=== PATIENT | male | born 1935 | race African-American/Black ===

== ENCOUNTER 2016-11-11 12:50 | Inpatient (IN) | payer OTHER ==
[2016-11-11] MEDS ORDERED: LORAZEPAM CARPU-JECT 2 MG/ML DISP.SYRIN IVPUSH ONE ×2 (13:19→16:46)
[2016-11-11] MEDS ORDERED: PANTOPRAZOLE SODIUM 40 MG in SODIUM CHLORIDE 100 ML IVPB ONE (13:37)
--- NOTE | 2016-11-11 13:43 | PDOC ---
History of Present Illness - General Stated Complaint: CHEST PAIN Time Seen by Provider: 11/11/16 12:54 History Source: Patient - History of Present Illness Initial Comments: 11/11/16 13:35 81-year-old male sent over from [facility] intake department secondary to patient 's complaint of chest pain which he describes as a midsternal tingling for the past hour without palpitations, pressure, diaphoresis or nausea. Patient states went to [facility] detox secondary to alcohol abuse which he states drinks 1 pint of vodka daily. Patient denies cough, shortness of breath, recent illness or recent infection. 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 Presenting Symptoms: Chest Pain Timing/Duration: reports: resolved prior to arrival (resolving since arrival) Severity/Quality: reports: moderate, other (tingling) Location: reports: substernal Chest Pain Radiation: reports: no radiation Activities at Onset: reports: none Prior Chest Pain/Cardiac Workup: reports: Other Nitro Today/Relief: Yes: no nitro taken today, 0.4 mg x 1 (given by EMS) Aspirin Received prior to arrival (Core Measure): Yes: 81 mg x 2 Associated Symptoms: Yes: Chest Pain/pressure Past History - Past Medical History Allergies/Adverse Reactions: Allergies Allergy/AdvReac Type Severity Reaction Status Date / Time No Known Allergies Allergy Verified 11/11/16 10:18 Home Medications: Ambulatory Orders Elviteg/Kathryn/Emtric/Tenofo Ala [Genvoya Tablet] 1 each PO DAILY 11/11/16 Finasteride [Proscar] 5 mg PO DAILY 11/11/16 Fluticasone Prop 0.05% Nasal [Flonase -] 1 - 2 spray NS BID 11/11/16 Indapamide 1.25 mg PO DAILY 11/11/16 Levetiracetam [Keppra -] 500 mg PO BID 11/11/16 Metoprolol Tartrate [Lopressor -] 25 mg PO BID 11/11/16 Tamsulosin HCl [Flomax] 0.4 mg PO DAILY 11/11/16 Asthma: No Cardiac Disorders: Yes (CABG in 2005 mitral valve replacement in 2006) COPD: No Diabetes: No GI Disorders: No Disorders: No HTN: Yes (on meds.) Kidney Stones: No Suicide Attempt (Hx): No Seizures: No - Surgical History Cardiac Surgery: Yes (CABG in 2006 mitral valve replacement in 2006) - Reproductive History Testicular Surgery: No - Psycho/Social/Smoking Cessation Hx Anxiety: No Suicidal Ideation: No Smoking History: Former smoker Have you smoked in the past 12 months: No If you are a former smoker, when did you quit?: 30 years ago Information on smoking cessation initiated: No Hx Alcohol Use: No Drug/Substance Use Hx: No Hx Substance Use Treatment: No Patient Lives Alone: No Cardiac Specific PMH - Complaint Specific PMHX Valvular Heart Disease: Yes Review of Systems - Review of Systems Able to Perform ROS?: Yes Constitutional: No: Symptoms Reported HEENTM: No: Symptoms Reported Respiratory: No: Symptoms reported Cardiac (ROS): Yes: Chest Pain ABD/GI: No: Symptoms Reported : No: Symptoms Reported Musculoskeletal: No: Symptoms Reported Integumentary: No: Symptoms Reported Neurological: No: Symptoms reported Endocrine: No: Symptoms Reported *Physical Exam - Vital Signs Last Vital Signs Temp Pulse Resp BP Pulse Ox 98.6 F 88 18 185/107 97 11/11/16 13:00 11/11/16 13:40 11/11/16 13:40 11/11/16 13:40 11/11/16 13:40 - Physical Exam General Appearance: Yes: Nourished, Appropriately Dressed. No: Apparent Distress HEENT: positive: EOMI, KARTHIKEYAN. negative: Pale Conjunctivae Neck: positive: Supple Respiratory/Chest: positive: Lungs Clear, Normal Breath Sounds. negative: Respiratory Distress, Accessory Muscle Use Cardiovascular: positive: Regular Rhythm, Tachycardia ( ON EKG). negative: Murmur Gastrointestinal/Abdominal: positive: Soft. negative: Tenderness Extremity: positive: Normal Capillary Refill. negative: Pedal Edema Integumentary: positive: Normal Color, Warm, Moist Neurologic: positive: Normal Mood/Affect, Motor Strength 5/5. negative: Sensory Deficit, Other (no tremors) Deep Tendon Reflexes: Knee (L): 2+, Knee (R): 2+ Heart Score/ECG Review - History History: Slightly suspicious - Electrocardiogram EKG: Normal - Age Age: >/= 65 - Risk Factors Risk Factors Heart Score: Yes Hx Hypercholesterolemia, Yes Positive family hx of cardiac disease Based on the list above the patient has:: >/=3 risk factors or Hx atherosclerotic disease - Troponin Troponin: </= normal limit (rate 110. No acute findings) - Score Heart Score - Total: 4 - ECG Intrepretation Rhythm: Regular Rhythm ED Treatment Course - LABORATORY CBC & Chemistry Diagram: 11/11/16 13:00 11/11/16 13:00 - ADDITIONAL ORDERS Additional order review: Laboratory Results 11/11/16 11/11/16 11/11/16 13:00 13:00 13:00 Sodium Potassium Chloride Carbon Dioxide Anion Gap BUN Creatinine Creat Clearance w eGFR Random Glucose Calcium Magnesium Total Bilirubin AST ALT Alkaline Phosphatase Creatine Kinase Troponin I Total Protein Albumin Urine Color Ltyellow Urine Appearance Clear Urine pH 6.0 Ur Specific [place] 1.014 Urine Protein Negative Urine Glucose (UA) Negative Urine Ketones Negative Urine Blood 1+ H Urine Nitrite Negative Urine Bilirubin Negative Urine Urobilinogen Negative Ur Leukocyte Esterase Negative Urine RBC 11 Urine WBC None Urine Bacteria Rare Granular Casts 1 Opiates Screen Negative Methadone Screen Negative Barbiturate Screen Negative Phencyclidine Screen Negative Ur Amphetamines Screen Negative MDMA (Ecstasy) Screen Negative Benzodiazepines Screen Negative Cocaine Screen Negative U Marijuana (THC) Screen Negative Alcohol, Quantitative < 5.0 11/11/16 13:00 Sodium 138 Potassium 3.9 Chloride 103 Carbon Dioxide 25 Anion Gap 10 BUN 18 Creatinine 1.1 Creat Clearance w eGFR > 60 Random Glucose 97 Calcium 8.7 Magnesium 2.0 Total Bilirubin 0.7 AST 40 H ALT 25 Alkaline Phosphatase 109 Creatine Kinase 51 Troponin I < 0.02 Total Protein 9.8 H Albumin 2.8 L Urine Color Urine Appearance Urine pH Ur Specific [place] Urine Protein Urine Glucose (UA) Urine Ketones Urine Blood Urine Nitrite Urine Bilirubin Urine Urobilinogen Ur Leukocyte Esterase Urine RBC Urine WBC Urine Bacteria Granular Casts Opiates Screen Methadone Screen Barbiturate Screen Phencyclidine Screen Ur Amphetamines Screen MDMA (Ecstasy) Screen Benzodiazepines Screen Cocaine Screen U Marijuana (THC) Screen Alcohol, Quantitative 11/11/16 13:00 RBC 4.09 MCV 97.9 H MCHC 32.6 RDW 13.3 MPV 8.7 Neutrophils % 40.7 L Lymphocytes % 46.9 H Monocytes % 10.3 H Eosinophils % 0.7 Basophils % 1.4 - RADIOLOGY Radiology Studies Ordered: Category Date Time Status HEAD CT WITHOUT CONTRAST [CT] Stat CT Scan 11/11/16 16:11 Ordered CHEST X-RAY PORTABLE* [RAD] Stat Radiology 11/11/16 13:19 Completed - Medications Given in the ED: ED Medications Discontinued Medications Generic Name Dose Route Start Last Admin Trade Name Yadi PRN Reason Stop Dose Admin Pantoprazole Sodium 40 mg/ 100 mls @ 200 mls/hr 11/11/16 13:37 11/11/16 13:55 Sodium Chloride IVPB 11/11/16 14:06 200 mls/hr ONCE ONE Administration Lorazepam 1 mg 11/11/16 13:19 11/11/16 13:55 Ativan Injection - IVPUSH 11/11/16 13:20 1 mg ONCE ONE Administration Metoprolol Tartrate 25 mg 11/11/16 16:06 11/11/16 16:25 Lopressor - PO 11/11/16 16:07 25 mg ONCE ONE Administration Medical Decision Making - Medical Decision Making 11/11/16 14:05 Patient here with complaints of chest pain intermittently for the past day. Patient was in the process of being admitted to [facility] for alcohol abuse when he had mentioned this to the physician. Patient states history of CAD, CABG , mitral valve replacement and is currently applying per day of vodka drinker. Patient also tachycardic and slightly hypertensive upon arrival. Patient ordered for cardiac workup, hand coper, IV Ativan, chest x-ray and urine along with alcohol level. Patient will be admitted to [facility]. 11/11/16 15:48 I was notified by patient's nurse that patient was found on his left side by the medical student and another attending physician. Patient was helped with 1 person assist back to bed and when I questioned patient why he fell he states he was seen for his pain study that was on his walker and when he realized the walker was further then he he thought he was unable to bear weight on his knees causing his left knee to buckle going down on his left side. Patient states did not hit his head nor does he have any discomfort at this time. Patient full mobility of his extremities, with no spinal cervical or concerns for head injury. Patient given call chacon and bit placed in the lowest position with patient's belonging and reach for him. 11/11/16 16:46 Laboratory Tests 11/11/16 11/11/16 11/11/16 13:00 13:00 13:00 WBC 5.2 Hgb 13.0 Hct 40.0 MCV 97.9 H Plt Count 168 Neutrophils % 40.7 L Lymphocytes % 46.9 H Monocytes % 10.3 H Sodium 138 Potassium 3.9 Chloride 103 Carbon Dioxide 25 Anion Gap 10 BUN 18 Creatinine 1.1 Random Glucose 97 Calcium 8.7 Magnesium 2.0 Total Bilirubin 0.7 AST 40 H ALT 25 Creatine Kinase 51 Troponin I < 0.02 Total Protein 9.8 H Albumin 2.8 L Urine Blood Urine Nitrite Ur Leukocyte Esterase Urine RBC Urine WBC Opiates Screen Methadone Screen Barbiturate Screen Phencyclidine Screen Ur Amphetamines Screen MDMA (Ecstasy) Screen Benzodiazepines Screen Cocaine Screen U Marijuana (THC) Screen Alcohol, Quantitative < 5.0 11/11/16 11/11/16 13:00 13:00 WBC Hgb Hct MCV Plt Count Neutrophils % Lymphocytes % Monocytes % Sodium Potassium Chloride Carbon Dioxide Anion Gap BUN Creatinine Random Glucose Calcium Magnesium Total Bilirubin AST ALT Creatine Kinase Troponin I Total Protein Albumin Urine Blood 1+ H Urine Nitrite Negative Ur Leukocyte Esterase Negative Urine RBC 11 Urine WBC None Opiates Screen Negative Methadone Screen Negative Barbiturate Screen Negative Phencyclidine Screen Negative Ur Amphetamines Screen Negative MDMA (Ecstasy) Screen Negative Benzodiazepines Screen Negative Cocaine Screen Negative U Marijuana (THC) Screen Negative Alcohol, Quantitative Case discussed with hospitalist and will admit to inpatient telemetry unit. Patient given Lopressor 25 by mouth and is currently on his way for head CT. *DC/Admit/Observation/Transfer Diagnosis at time of Disposition: Alcohol dependence with uncomplicated withdrawal Chest pain Qualifiers: Chest pain type: unspecified Qualified Code(s): R07.9 - Chest pain, unspecified - Discharge Dispostion Admit: Yes
[2016-11-11 13:45] LABS: BASOPHIL 1.4 % (0-2.0); EOSINOPHIL 0.7 % (0-4.5); MCH 31.9 pg (25.7-33.7); MCHC 32.6 g/dl (32.0-35.9); MEAN CELL VOLUME 97.9 fl (80-96); MEAN PLT VOLUME 8.7 fl (7.5-11.1); NEUTROPHILS 40.7 % (42.8-82.8); PLATELET COUNT 168 K/MM3 (134-434); RDW 13.3 % (11.9-15.9); WHITE BLOOD COUNT 5.2 K/mm3 (4.0-10.0)
[2016-11-11 13:52] LABS: URINE APPEARANCE CLEAR; URINE BILIRUBIN NEGATIVE (NEGATIVE); URINE COLOR LTYELLOW; URINE GLUCOSE (UA) NEGATIVE (NEGATIVE); URINE KETONE NEGATIVE (NEGATIVE); URINE LEUK ESTERASE NEGATIVE (NEGATIVE); URINE NITRITE NEGATIVE (NEGATIVE); URINE PROTEIN NEGATIVE (NEGATIVE); URINE UROBILINOGEN NEGATIVE E.U./dl (0.2-1.0)
[2016-11-11] MEDS ORDERED: LORAZEPAM CARPU-JECT 2 MG/ML DISP.SYRIN ONE ×2 (13:55→17:19)
[2016-11-11] MEDS ORDERED: PANTOPRAZOLE SODIUM 100 ML IVPB ONE (13:56)
[2016-11-11 14:00] LABS: URINE BLOOD 1+ (NEGATIVE)
--- NOTE | 2016-11-11 14:03 | PDOC ---
*Physical Exam - Vital Signs Last Vital Signs Temp Pulse Resp BP Pulse Ox 98.6 F 53 L 18 164/108 97 11/11/16 13:00 11/11/16 13:00 11/11/16 13:00 11/11/16 13:00 11/11/16 13:00 ED Treatment Course - LABORATORY CBC & Chemistry Diagram: 11/11/16 13:00 11/11/16 13:00 - ADDITIONAL ORDERS Additional order review: Laboratory Results 11/11/16 13:00 Urine Color Ltyellow Urine Appearance Clear Urine pH 6.0 Ur Specific [place] 1.014 Urine Protein Negative Urine Glucose (UA) Negative Urine Ketones Negative Urine Blood 1+ H Urine Nitrite Negative Urine Bilirubin Negative Urine Urobilinogen Negative Ur Leukocyte Esterase Negative Medical Decision Making - Medical Decision Making 11/11/16 14:02 Pt seen by Midlevel Provider under my direct supervision Ancillary studies reviewed I agree with plan as outlined by Midlevel Provider *DC/Admit/Observation/Transfer Diagnosis at time of Disposition: Alcohol dependence with uncomplicated withdrawal, Chest pain
[2016-11-11 14:04] LABS: GRANULAR CASTS 1 /lpf; URINE BACTERIA RARE /hpf (NONE SEEN); URINE RBC 11 /hpf (0-3)
[2016-11-11 14:10] LABS: URINE MARIJUANA THC NEGATIVE ng/ml (CUTOFF=50)
[2016-11-11 14:20] LABS: ALBUMIN 2.8 g/dl (3.4-5.0); ANION GAP 10 (8-16); BILIRUBIN,TOTAL 0.7 mg/dL (0.2-1.0); CALCIUM 8.7 mg/dL (8.5-10.1); CO2 25 mmol/L (21-32); COCKROFT - GAULT 45.41; CREATININE 1.1 mg/dL (0.7-1.3); GLUCOSE,RANDOM 97 mg/dL (74-106); SGOT/AST 40 U/L (15-37); SGPT/ALT 25 U/L (12-78); TOT PROT 9.8 g/dl (6.4-8.2)
[2016-11-11 14:23] LABS: ALK PHOS 109 U/L (45-117); TROPONIN I < 0.02 ng/ml (0.00-0.05)
[2016-11-11] MEDS ORDERED: METOPROLOL TARTRATE 25 MG TABLET (FP) PO ONE (16:06)
[2016-11-11] MEDS ORDERED: METOPROLOL TARTRATE 25 MG TABLET (FP) ONE (16:25)
--- NOTE | 2016-11-11 16:36 | PN ---
Teaching Attending Note Name of Resident: Kimani Redding ATTENDING PHYSICIAN STATEMENT I saw and evaluated the patient. I reviewed the resident's note and discussed the case with the resident. I agree with the resident's findings and plan as documented. SUBJECTIVE: The patient is a 81-year-old male with a significant past medical history of hypertension, coronary artery disease, cigarette smoking, HIV/AIDS (on ART), alcohol abuse who presented to the emergency department after he complained of chest discomfort while being assessed for alcohol detox and rehabilitation at the [facility]. He describes the chest pain as pressure. It was mild in intensity. It did not radiate. He denies associated dyspnea, palpitations, nausea, diaphoresis. It lasted approximately 10 minutes, and resolved spontaneously. He had signs and symptoms of alcohol withdrawal while in the ED. He fell while in the ED without head trauma of injury. The patient denies recent travel/surgeries/immobility, lower extremity edema, calf pain or tenderness, tobacco use, hormone use, personal or family history of thrombosis. He did not take his medications today. OBJECTIVE: Vitals noted including hypertension He is well-appearing and in no acute distress EKG: Sinus tachycardia at 112, normal axis, normal intervals, physiologic Q waves in 2, 3, aVF, V5 and V6, no ST changes HEART SCORE: 3 ASSESSMENT AND PLAN: -Atypical chest pain -Hypertension -Tachycardia -Evidence of alcohol withdrawal I presume HTN and tachycardia are due to withdrawal plus non-compliance Will treat withdrawal with Ativan and Librium ASA daily Continue Metoprolol Will dose with Lopressor 5mg IV now as he did not take his medications today and he is tachycardic Will trend troponins x 3 Cardiology consult Librium and Ativan for alcohol withdrawal U tox Banana bag Daily Folate, B12, MVI Will continue other home meds Head CT was ordered in the ED as evaluation of fall Continue ART See resident note for full details
[2016-11-11] MEDS ORDERED: METOPROLOL TARTRATE 5 MG/5 ML VIAL IVPUSH ONE (16:45)
[2016-11-11] MEDS ORDERED: MAGNESIUM SULFATE IVPB ONE (16:45)
[2016-11-11] MEDS ORDERED: FOLIC ACID IVPB ONE (16:45)
[2016-11-11] MEDS ORDERED: THIAMINE HCL IVPB ONE (16:45)
[2016-11-11] MEDS ORDERED: [UNRECOGNIZED DRUG - OTHER] IVPB ONE (16:45)
[2016-11-11] MEDS ORDERED: ASPIRIN 81 MG CHEWABLE TABLETS PO ONE (16:48)
[2016-11-11] MEDS ORDERED: chlordiazePOXIDE HCL 25 MG CAPSULE PO PRN (16:56)
--- NOTE | 2016-11-11 16:57 | HP ---
CHIEF COMPLAINT:Chest pain HISTORY OF PRESENT ILLNESS: 81M with history of hypertension, coronary artery disease s/p CABG, cigarette smoking, HIV/AIDS (on HAART), BPH, questionable seizure disorder on keppra, alcohol abuse who who presents to the ED from [facility] with complaints of chest pain. He was being assessed for detox admission and he started to complain of chest discomfort. He describes the chest pain as mild pressure like. He denies any associated symptoms such as radiation, dyspnea, palpitations, nausea, or diaphoresis. It lasted approximately 10 minutes, and resolved after he got sublingual nitroglycerin by EMS. Patient states he will start to shake if he does not drink alcohol. Patient noted to have a fall in ED but did not hit his head. ER course was notable for: (1)CXR Head CT (2)Labs EKG (3)aspirin vitamins Recent Travel:Denies PAST MEDICAL HISTORY:As above PAST SURGICAL HISTORY:CABG Social History: Smoking:current every day smoker Alcohol:Yes drink 1 pint of vodka a day Drugs: Denies Family History: Allergies No Known Allergies Allergy (Verified 11/11/16 10:18) HOME MEDICATIONS: Home Medications Medication Instructions Recorded Elviteg/Kathryn/Emtric/Tenofo Ala 1 each PO DAILY 11/11/16 [Genvoya Tablet] Finasteride [Proscar] 5 mg PO DAILY 11/11/16 Fluticasone Prop 0.05% Nasal 1 - 2 spray NS BID 11/11/16 [Flonase -] Indapamide 1.25 mg PO DAILY 11/11/16 Levetiracetam [Keppra -] 500 mg PO BID 11/11/16 Metoprolol Tartrate [Lopressor -] 25 mg PO BID 11/11/16 Tamsulosin HCl [Flomax] 0.4 mg PO DAILY 11/11/16 REVIEW OF SYSTEMS CONSTITUTIONAL: Absent: fever, chills, diaphoresis, generalized weakness, malaise, loss of appetite, weight change HEENT: Absent: rhinorrhea, nasal congestion, throat pain, throat swelling, difficulty swallowing, mouth swelling, ear pain, eye pain, visual changes CARDIOVASCULAR: Absent: , syncope, palpitations, irregular heart rate, lightheadedness, peripheral edema Present: chest pain RESPIRATORY: Absent: cough, shortness of breath, dyspnea with exertion, orthopnea, wheezing, stridor, hemoptysis GASTROINTESTINAL: Absent: abdominal pain, abdominal distension, nausea, vomiting, diarrhea, constipation, melena, hematochezia GENITOURINARY: Absent: dysuria, frequency, urgency, hesitancy, hematuria, flank pain, genital pain MUSCULOSKELETAL: Absent: myalgia, arthralgia, joint swelling, back pain, neck pain SKIN: Absent: rash, itching, pallor HEMATOLOGIC/IMMUNOLOGIC: Absent: easy bleeding, easy bruising, lymphadenopathy, frequent infections ENDOCRINE: Absent: unexplained weight gain, unexplained weight loss, heat intolerance, cold intolerance NEUROLOGIC: Absent: headache, focal weakness or paresthesias, dizziness, unsteady gait, seizure, mental status changes, bladder or bowel incontinence PSYCHIATRIC: Absent: anxiety, depression, suicidal or homicidal ideation, hallucinations. PHYSICAL EXAMINATION Vital Signs - 24 hr 11/11/16 11/11/16 13:00 13:40 Temperature 98.6 F Pulse Rate 53 L Pulse Rate [ 88 Apical] Respiratory 18 18 Rate Blood Pressure 164/108 Blood Pressure 185/107 [Right Arm] O2 Sat by Pulse 97 97 Oximetry (%) GENERAL: Awake, alert, and fully oriented, in no acute distress. HEAD: Normal with no signs of trauma. EYES: Pupils equal, round and reactive to light, extraocular movements intact. EARS, NOSE, THROAT: dry mucous membranes. NECK: Normal range of motion, supple without JVD LUNGS: Breath sounds equal, clear to auscultation bilaterally. No wheezes, and no crackles HEART: Regular rate and rhythm, normal S1 and S2 without murmur ABDOMEN: Soft, nontender, not distended, normoactive bowel sounds MUSCULOSKELETAL: No CVA tenderness. UPPER EXTREMITIES: No peripheral edema. LOWER EXTREMITIES:No peripheral edema. NEUROLOGICAL: Cranial nerves II-XII intact. Normal speech. PSYCHIATRIC: Cooperative. Laboratory Results - last 24 hr 11/11/16 11/11/16 11/11/16 13:00 13:00 13:00 WBC 5.2 RBC 4.09 Hgb 13.0 Hct 40.0 MCV 97.9 H MCHC 32.6 RDW 13.3 Plt Count 168 MPV 8.7 Neutrophils % 40.7 L Lymphocytes % 46.9 H Monocytes % 10.3 H Eosinophils % 0.7 Basophils % 1.4 Sodium 138 Potassium 3.9 Chloride 103 Carbon Dioxide 25 Anion Gap 10 BUN 18 Creatinine 1.1 Creat Clearance w eGFR > 60 Random Glucose 97 Calcium 8.7 Magnesium 2.0 Total Bilirubin 0.7 AST 40 H ALT 25 Alkaline Phosphatase 109 Creatine Kinase 51 Troponin I < 0.02 Total Protein 9.8 H Albumin 2.8 L Urine Color Urine Appearance Urine pH Ur Specific [place] Urine Protein Urine Glucose (UA) Urine Ketones Urine Blood Urine Nitrite Urine Bilirubin Urine Urobilinogen Ur Leukocyte Esterase Urine RBC Urine WBC Urine Bacteria Granular Casts Opiates Screen Methadone Screen Barbiturate Screen Phencyclidine Screen Ur Amphetamines Screen MDMA (Ecstasy) Screen Benzodiazepines Screen Cocaine Screen U Marijuana (THC) Screen Alcohol, Quantitative < 5.0 11/11/16 11/11/16 13:00 13:00 WBC RBC Hgb Hct MCV MCHC RDW Plt Count MPV Neutrophils % Lymphocytes % Monocytes % Eosinophils % Basophils % Sodium Potassium Chloride Carbon Dioxide Anion Gap BUN Creatinine Creat Clearance w eGFR Random Glucose Calcium Magnesium Total Bilirubin AST ALT Alkaline Phosphatase Creatine Kinase Troponin I Total Protein Albumin Urine Color Ltyellow Urine Appearance Clear Urine pH 6.0 Ur Specific [place] 1.014 Urine Protein Negative Urine Glucose (UA) Negative Urine Ketones Negative Urine Blood 1+ H Urine Nitrite Negative Urine Bilirubin Negative Urine Urobilinogen Negative Ur Leukocyte Esterase Negative Urine RBC 11 Urine WBC None Urine Bacteria Rare Granular Casts 1 Opiates Screen Negative Methadone Screen Negative Barbiturate Screen Negative Phencyclidine Screen Negative Ur Amphetamines Screen Negative MDMA (Ecstasy) Screen Negative Benzodiazepines Screen Negative Cocaine Screen Negative U Marijuana (THC) Screen Negative Alcohol, Quantitative CXR: Cardiomegaly Head CT- no acute pathology ASSESSMENT/PLAN: 81M with multiple medical problems presents to the ED with chest pain in the setting of alcohol withdrawals. Atypical chest pain in the setting of alcohol withdrawal/CAD s/p CABG Admit to telemetry Cardiology consult trend cardiac enzymes x3 so far negative Echo Check BNP start daily aspirin STAT dose given in ED HIV on HAART: Patient on combo pill restart combo pill daily patients own med outpatient follow up Alcohol abuse/dependency: Start librium protocol taper assess for withdrawals ativan PRN banana bag thiamine B12 multivitamin Seizure disorder: continue Keppra BPH: continue flomax and proscar FEN: no IVF no electrolyte issues low sodium diet PPx: HSQ/SCDs no GI PPx indicated no PT consult at this time Visit type - Emergency Visit Emergency Visit: Yes ED Registration Date: 11/11/16 Care time: The patient presented to the Emergency Department on the above date and was hospitalized for further evaluation of their emergent condition. - New Patient This patient is new to me today: Yes Date on this admission: 11/11/16 - Critical Care Critical Care patient: No
[2016-11-11] MEDS ORDERED: chlordiazePOXIDE HCL 25 MG CAPSULE PO SCH (17:00)
[2016-11-11] MEDS ORDERED: chlordiazePOXIDE HCL 25 MG CAPSULE ONE (17:18)
[2016-11-11] MEDS ORDERED: METOPROLOL TARTRATE 5 MG/5 ML VIAL ONE (17:19)
[2016-11-11] MEDS: chlordiazePOXIDE HCL 25 MG CAPSULE PO SCH ×2 (17:45→22:28)
[2016-11-11 19:32] VITALS: BMI 24.7
[2016-11-11 21:34] LABS: TROPONIN I 0.02 ng/ml (0.00-0.05)
[2016-11-11] MEDS: HEPARIN NA (PORCINE) 5,000 UNITS/ML 1ML VIAL SQ SCH (21:51)
[2016-11-11] MEDS: levETIRAcetam 500 MG TABLET (FP) PO SCH (21:51)
[2016-11-11] MEDS: METOPROLOL TARTRATE 25 MG TABLET (FP) PO SCH (21:51)
--- NOTE | 2016-11-11 22:52 | EKG ---
Test Reason : Blood Pressure : / mmHG Vent. Rate : 110 BPM Atrial Rate : 110 BPM P-R Int : 152 ms QRS Dur : 084 ms QT Int : 336 ms P-R-T Axes : 059 062 037 degrees QTc Int : 454 ms SINUS TACHYCARDIA OTHERWISE NORMAL ECG NO PREVIOUS ECGS AVAILABLE Confirmed by CECILIA HOOPER MD ([id number]) on 11/11/2016 10:52:11 PM Referred By: Confirmed By:CECILIA HOOPER MD
[2016-11-12] MEDS: chlordiazePOXIDE HCL 25 MG CAPSULE PO SCH ×4 (05:14→22:42)
[2016-11-12] MEDS: HEPARIN NA (PORCINE) 5,000 UNITS/ML 1ML VIAL SQ SCH ×3 (05:34→21:11)
[2016-11-12 08:39] LABS: TROPONIN I 0.02 ng/ml (0.00-0.05)
[2016-11-12] MEDS: THIAMINE HCL 100 MG TABLET (FP) PO SCH (09:14)
[2016-11-12] MEDS: FOLIC ACID 1 MG TABLET (FP) PO SCH (09:15)
[2016-11-12] MEDS: levETIRAcetam 500 MG TABLET (FP) PO SCH ×2 (09:15→21:10)
[2016-11-12] MEDS: METOPROLOL TARTRATE 25 MG TABLET (FP) PO SCH ×2 (09:15→21:11)
[2016-11-12] MEDS: FINASTERIDE 5 MG TABLET (FP) PO SCH (09:15)
[2016-11-12] MEDS: MULTIVITAMINS THER W-MINERALS COMBO TABLET (FP) PO SCH (09:15)
[2016-11-12] MEDS: TAMSULOSIN HCL 0.4 MG CAP.ER.24H (FP) PO SCH (09:15)
[2016-11-12] MEDS: ASPIRIN 81 MG CHEWABLE TABLETS PO SCH (09:16)
[2016-11-12] MEDS: CYANOCOBALAMIN (VITAMIN B-12) 100 MCG TABLET PO SCH (09:16)
--- NOTE | 2016-11-12 15:11 | PN ---
Physical Exam: SUBJECTIVE: Patient seen and examined at bedside confused today probably from librium was able to ambuklate with PT with walker but not much to make it a safe discharge to rehab. OBJECTIVE: Vital Signs Period Temp Pulse Resp BP Sys/Good Pulse Ox Last 24 Hr 97.2 F-98 F 61-78 18-20 114-185/67-116 97-98 GENERAL: Tired appearing but easily arousable. HEAD: Normal with no signs of trauma. EYES: Pupils equal, round and reactive to light, extraocular movements intact. normal fatiguing nystagmus NECK: Supple LUNGS: Breath sounds equal, clear to auscultation bilaterally. No wheezes, and no crackles HEART: Regular rate and rhythm, normal S1 and S2 without murmur ABDOMEN: Soft, nontender, not distended, normoactive bowel sounds MUSCULOSKELETAL: No CVA tenderness. UPPER EXTREMITIES: No peripheral edema. LOWER EXTREMITIES:No peripheral edema. NEUROLOGICAL: Cranial nerves II-XII intact. does not make sense when he talks Laboratory Results - last 24 hr 11/11/16 11/12/16 20:15 05:50 Creatine Kinase 45 48 Troponin I 0.02 0.02 Active Medications Generic Name Dose Route Start Last Admin Trade Name Freq PRN Reason Stop Dose Admin Aspirin 81 mg 11/12/16 10:00 11/12/16 09:16 Asa - PO 81 mg DAILY ADÁN Administration Chlordiazepoxide HCl 25 mg 11/12/16 17:00 Librium - PO 11/13/16 11:01 [id number] ADÁN Chlordiazepoxide HCl 15 mg 11/13/16 17:00 Librium - PO 11/14/16 11:01 [id number] ADÁN Chlordiazepoxide HCl 25 mg 11/11/16 16:56 Librium - PO 11/14/16 16:55 Q4H PRN WITHDRAWAL(CONT SUBST) Cyanocobalamin 100 mcg 11/12/16 10:00 11/12/16 09:16 Vitamin B12 - PO 100 mcg DAILY ADÁN Administration Finasteride 5 mg 11/12/16 10:00 11/12/16 09:15 Proscar - PO 5 mg DAILY ADÁN Administration Folic Acid 1 mg 11/12/16 10:00 11/12/16 09:15 Folic Acid - PO 1 mg DAILY ADÁN Administration Heparin Sodium (Porcine) 5,000 unit 11/11/16 22:00 11/12/16 14:10 Heparin - SQ 5,000 unit TID ADÁN Administration Levetiracetam 500 mg 11/11/16 22:00 11/12/16 09:15 Keppra - PO 500 mg BID ADÁN Administration Metoprolol Tartrate 25 mg 11/11/16 22:00 11/12/16 09:15 Lopressor - PO 25 mg BID ADÁN Administration Multivitamins/Minerals 1 each 11/12/16 10:00 11/12/16 09:15 Theragran-M PO 1 each DAILY ADÁN Administration Tamsulosin HCl 0.4 mg 11/12/16 08:30 11/12/16 09:15 Flomax - PO 0.4 mg DAILY@0830 ADÁN Administration Thiamine HCl 100 mg 11/12/16 10:00 11/12/16 09:14 Vitamin B1 - PO 100 mg DAILY ADÁN Administration ASSESSMENT/PLAN: 81M with multiple medical problems presents to the ED with chest pain in the setting of alcohol withdrawals. Atypical chest pain in the setting of alcohol withdrawal/CAD s/p CABG cardiac enzymes negative x3 so far Echo done read pending continue aspirin HIV on HAART: patient does not have meds with him patient unable to tell me if he is complicant with medications Altered mental status: unknown what this patient's baseline is more altered with librium today ammonia level borderline high HTN: continue metoprolol BP now well controlled Alcohol abuse/dependency: continue librium protocol taper banana bag given continue thiamine continue B12 continue multivitamin Seizure disorder: continue Keppra BPH: continue flomax and proscar FEN: no IVF no electrolyte issues low sodium diet PPx: HSQ/SCDs no GI PPx indicated PT consult Patient unable to be discharged back to detox given his mental status and risk of falls. Patient does not have a support system outside of the hospital. Will likely need to complete detox here as inpatient and be discharged to SNF. Visit type - Emergency Visit Emergency Visit: Yes ED Registration Date: 11/11/16 Care time: The patient presented to the Emergency Department on the above date and was hospitalized for further evaluation of their emergent condition. - New Patient This patient is new to me today: No - Critical Care Critical Care patient: No - Discharge Referral Referred to [facility] Med P.C.: No
--- NOTE | 2016-11-12 15:49 | PN ---
Teaching Attending Note Name of Resident: Kimani Redding ATTENDING PHYSICIAN STATEMENT I saw and evaluated the patient. I reviewed the resident's note and discussed the case with the resident. I agree with the resident's findings and plan as documented. SUBJECTIVE: no pain , no fever ro chills, no CP today , has no SOB. OBJECTIVE: NAD, awake , confused . CV: RRR lungs : CTAB Ext : no edema , no tremor ASSESSMENT AND PLAN: 81 y/o man with H/O CAD s/p CABG, HIV not compliant with his meds, BPH, bioprosthetic aortic and mitral valves , seizure disorder who presented with CP during triage to [facility] detox program , 1- Chest pain, atypical , unlikely cardiac. resolved . EKG with sinus tachy, no acute ischemic changes trop nl x 3 echo with nl EF, no regional WMA f/u as out pt cont ASA cont BB check Lipids 2- ETOH withdrawal : cont with librium detox confused due to withrawal and librium . no nystagmus ( fatiguing nystagmus). unlikely Wernicke cont thiamine nad vitamins 3- Seizure : cont Keppra 4- HIV, not on meds now walked 40 feet with PT, not appropriate for out pt detox at this point , will reevaluate tomorrow
[2016-11-13] MEDS: HEPARIN NA (PORCINE) 5,000 UNITS/ML 1ML VIAL SQ SCH ×3 (05:48→21:31)
[2016-11-13] MEDS: chlordiazePOXIDE HCL 25 MG CAPSULE PO SCH ×2 (05:48→11:03)
[2016-11-13 08:41] LABS: CHOLESTEROL 103 mg/dL (50-200)
[2016-11-13 08:43] LABS: LDL CHOLESTEROL (ONLY SJRH) 55 mg/dL (5-100)
[2016-11-13] MEDS: levETIRAcetam 500 MG TABLET (FP) PO SCH ×2 (09:32→21:31)
[2016-11-13] MEDS: TAMSULOSIN HCL 0.4 MG CAP.ER.24H (FP) PO SCH (09:33)
[2016-11-13] MEDS: FINASTERIDE 5 MG TABLET (FP) PO SCH (09:33)
[2016-11-13] MEDS: CYANOCOBALAMIN (VITAMIN B-12) 100 MCG TABLET PO SCH (09:33)
[2016-11-13] MEDS: FOLIC ACID 1 MG TABLET (FP) PO SCH (09:33)
[2016-11-13] MEDS: METOPROLOL TARTRATE 25 MG TABLET (FP) PO SCH ×2 (09:33→21:31)
[2016-11-13] MEDS: THIAMINE HCL 100 MG TABLET (FP) PO SCH (09:33)
[2016-11-13] MEDS: MULTIVITAMINS THER W-MINERALS COMBO TABLET (FP) PO SCH (09:33)
[2016-11-13] MEDS: ASPIRIN 81 MG CHEWABLE TABLETS PO SCH (09:33)
--- NOTE | 2016-11-13 14:33 | PN ---
Physical Exam: SUBJECTIVE: Patient seen and examined at bedside more awake today makes more sense today but difficult to understand- possible this is his baseline OBJECTIVE: Vital Signs Period Temp Pulse Resp BP Sys/Good Pulse Ox Last 24 Hr 97.5 F-98.0 F 75-96 18-20 97-120/61-70 GENERAL: alert awake. HEAD: Normal with no signs of trauma. EYES: Pupils equal, round and reactive to light, extraocular movements intact. NECK: Supple LUNGS: Breath sounds equal, clear to auscultation bilaterally. No wheezes, and no crackles HEART: Regular rate and rhythm, normal S1 and S2 without murmur ABDOMEN: Soft, nontender, not distended, normoactive bowel sounds MUSCULOSKELETAL: No CVA tenderness. UPPER EXTREMITIES: No peripheral edema. LOWER EXTREMITIES:No peripheral edema. NEUROLOGICAL: Cranial nerves II-XII intact. makes a little more sense than yesterday Laboratory Results - last 24 hr 11/13/16 05:40 Triglycerides 90 Cholesterol 103 Total LDL Cholesterol 55 HDL Cholesterol 42 Active Medications Generic Name Dose Route Start Last Admin Trade Name Freq PRN Reason Stop Dose Admin Aspirin 81 mg 11/12/16 10:00 11/13/16 09:33 Asa - PO 81 mg DAILY ADÁN Administration Chlordiazepoxide HCl 15 mg 11/13/16 17:00 Librium - PO 11/14/16 11:01 [id number] ADÁN Chlordiazepoxide HCl 25 mg 11/11/16 16:56 Librium - PO 11/14/16 16:55 Q4H PRN WITHDRAWAL(CONT SUBST) Cyanocobalamin 100 mcg 11/12/16 10:00 11/13/16 09:33 Vitamin B12 - PO 100 mcg DAILY ADÁN Administration Finasteride 5 mg 11/12/16 10:00 11/13/16 09:33 Proscar - PO 5 mg DAILY ADÁN Administration Folic Acid 1 mg 11/12/16 10:00 11/13/16 09:33 Folic Acid - PO 1 mg DAILY ADÁN Administration Heparin Sodium (Porcine) 5,000 unit 11/11/16 22:00 11/13/16 05:48 Heparin - SQ 5,000 unit TID ADÁN Administration Levetiracetam 500 mg 11/11/16 22:00 11/13/16 09:32 Keppra - PO 500 mg BID ADÁN Administration Metoprolol Tartrate 25 mg 11/11/16 22:00 11/13/16 09:33 Lopressor - PO 25 mg BID ADÁN Administration Multivitamins/Minerals 1 each 11/12/16 10:00 11/13/16 09:33 Theragran-M PO 1 each DAILY ADÁN Administration Tamsulosin HCl 0.4 mg 11/12/16 08:30 11/13/16 09:33 Flomax - PO 0.4 mg DAILY@0830 ADÁN Administration Thiamine HCl 100 mg 11/12/16 10:00 11/13/16 09:33 Vitamin B1 - PO 100 mg DAILY ADÁN Administration ASSESSMENT/PLAN: 81M with multiple medical problems presents to the ED with chest pain in the setting of alcohol withdrawals. Atypical chest pain in the setting of alcohol withdrawal/CAD s/p CABG and bioprosthetic aortic and mitral valve replacements cardiac enzymes negative x3 Echo noted-mildly dilated right ventricle continue aspirin will need outpatient follow up Lipids checked and are well controlled without medications-patient does not have hyperlipidemia HIV on HAART: patient does not have meds with him patient unable to tell me if he is compliant with medications Will need to follow up with the HIV clinic as an outpatient Altered mental status: unknown what this patient's baseline is more awake and less altered today his mental status is improving as the dose of librium is being tapered down HTN: continue metoprolol BP now well controlled Alcohol abuse/dependency: continue librium protocol taper banana bag given continue thiamine continue B12 continue multivitamin Dr. Schumacher consulted for guidance and to see if he could take him back to [facility] Seizure disorder: continue Keppra BPH: continue flomax and proscar FEN: no IVF no electrolyte issues low sodium diet PPx: HSQ/SCDs no GI PPx indicated PT consult Dispo: SNF vs [facility] for rehab Visit type - Emergency Visit Emergency Visit: Yes ED Registration Date: 11/11/16 Care time: The patient presented to the Emergency Department on the above date and was hospitalized for further evaluation of their emergent condition. - New Patient This patient is new to me today: No - Critical Care Critical Care patient: No - Discharge Referral Referred to [facility] Med P.C.: No
--- NOTE | 2016-11-13 15:03 | PN ---
Teaching Attending Note Name of Resident: Kimani Redding ATTENDING PHYSICIAN STATEMENT I saw and evaluated the patient. I reviewed the resident's note and discussed the case with the resident. I agree with the resident's findings and plan as documented. SUBJECTIVE: has no pain, no SOB . no events over night OBJECTIVE: NAD, awake, knows he is in hospital, not his age , and not the year no nystagmus CV: RRR lungs: CTAB Ex: no edema, no tremor ASSESSMENT AND PLAN: 81 y/o man with H/O CAD s/p CABG, HIV not compliant with his meds, BPH, bioprosthetic aortic and mitral valves , seizure disorder who presented with CP during triage to [facility] detox program, 1-Atypical Chest pain: trop nl x 3 echo with nl EF, no regional WMA f/u as out pt cont ASA cont BB LDL 55 2- ETOH withdrawal: cont with librium detox confused due to withrawal and librium . no nystagmus . unlikely Wernicke cont thiamine nad vitamins will as Dr. Sage Cardona to evaluate . 3- Seizure : cont Keppra 4- HIV, not on meds now
[2016-11-13] MEDS: chlordiazePOXIDE 5 MG CAPSULE PO SCH ×2 (17:45→23:04)
--- NOTE | 2016-11-13 18:37 | PN ---
[facility] Progress Note (SOAP) Subjective: Pt. was evaluated by me to decide whether he's appropriate to complete detox at [facility]. Pt. is in bed having dinner,he's alert but appears weak. Pt. has been drinking alcohol since his mid teens,his a few years ago.He lives alone in his own apartment & receives home care services. He uses a rolling walker with seat.PMH : CAD with CABG x 2,HIV,BPH & seizure disorder. Objective: 11/13/16 18:40 Vital Signs - 8 hr 11/13/16 14:00 Temperature 98.0 F Pulse Rate 77 Respiratory 28 H Rate Blood Pressure 103/67 Laboratory Tests 11/11/16 11/11/16 11/11/16 13:00 13:00 13:00 WBC 5.2 RBC 4.09 Hgb 13.0 Hct 40.0 MCV 97.9 H MCHC 32.6 RDW 13.3 Plt Count 168 MPV 8.7 Neutrophils % 40.7 L Lymphocytes % 46.9 H Monocytes % 10.3 H Eosinophils % 0.7 Basophils % 1.4 Sodium 138 Potassium 3.9 Chloride 103 Carbon Dioxide 25 Anion Gap 10 BUN 18 Creatinine 1.1 Creat Clearance w eGFR > 60 Random Glucose 97 Calcium 8.7 Magnesium 2.0 Total Bilirubin 0.7 AST 40 H ALT 25 Alkaline Phosphatase 109 Ammonia Creatine Kinase 51 Troponin I < 0.02 B-Natriuretic Peptide 1063.07 H Total Protein 9.8 H Albumin 2.8 L Triglycerides Cholesterol Total LDL Cholesterol HDL Cholesterol Urine Color Urine Appearance Urine pH Ur Specific [place] Urine Protein Urine Glucose (UA) Urine Ketones Urine Blood Urine Nitrite Urine Bilirubin Urine Urobilinogen Ur Leukocyte Esterase Urine RBC Urine WBC Urine Bacteria Granular Casts Opiates Screen Methadone Screen Barbiturate Screen Phencyclidine Screen Ur Amphetamines Screen MDMA (Ecstasy) Screen Benzodiazepines Screen Cocaine Screen U Marijuana (THC) Screen Alcohol, Quantitative < 5.0 11/11/16 11/11/16 11/11/16 13:00 13:00 16:11 WBC RBC Hgb Hct MCV MCHC RDW Plt Count MPV Neutrophils % Lymphocytes % Monocytes % Eosinophils % Basophils % Sodium Potassium Chloride Carbon Dioxide Anion Gap BUN Creatinine Creat Clearance w eGFR Random Glucose Calcium Magnesium Total Bilirubin AST ALT Alkaline Phosphatase Ammonia 37.23 H Creatine Kinase Troponin I B-Natriuretic Peptide Total Protein Albumin Triglycerides Cholesterol Total LDL Cholesterol HDL Cholesterol Urine Color Ltyellow Urine Appearance Clear Urine pH 6.0 Ur Specific [place] 1.014 Urine Protein Negative Urine Glucose (UA) Negative Urine Ketones Negative Urine Blood 1+ H Urine Nitrite Negative Urine Bilirubin Negative Urine Urobilinogen Negative Ur Leukocyte Esterase Negative Urine RBC 11 Urine WBC None Urine Bacteria Rare Granular Casts 1 Opiates Screen Negative Methadone Screen Negative Barbiturate Screen Negative Phencyclidine Screen Negative Ur Amphetamines Screen Negative MDMA (Ecstasy) Screen Negative Benzodiazepines Screen Negative Cocaine Screen Negative U Marijuana (THC) Screen Negative Alcohol, Quantitative 11/11/16 11/12/16 11/13/16 20:15 05:50 05:40 WBC RBC Hgb Hct MCV MCHC RDW Plt Count MPV Neutrophils % Lymphocytes % Monocytes % Eosinophils % Basophils % Sodium Potassium Chloride Carbon Dioxide Anion Gap BUN Creatinine Creat Clearance w eGFR Random Glucose Calcium Magnesium Total Bilirubin AST ALT Alkaline Phosphatase Ammonia Creatine Kinase 45 48 Troponin I 0.02 0.02 B-Natriuretic Peptide Total Protein Albumin Triglycerides 90 Cholesterol 103 Total LDL Cholesterol 55 HDL Cholesterol 42 Urine Color Urine Appearance Urine pH Ur Specific [place] Urine Protein Urine Glucose (UA) Urine Ketones Urine Blood Urine Nitrite Urine Bilirubin Urine Urobilinogen Ur Leukocyte Esterase Urine RBC Urine WBC Urine Bacteria Granular Casts Opiates Screen Methadone Screen Barbiturate Screen Phencyclidine Screen Ur Amphetamines Screen MDMA (Ecstasy) Screen Benzodiazepines Screen Cocaine Screen U Marijuana (THC) Screen Alcohol, Quantitative labs noted Assessment: 11/13/16 18:41 Alcohol dependence with withdrawal sx. HIV BPH CAD Seizure disorder Plan: Pt. should complete detox in medical service because of multiple medical issues PT daily for ambulation Contact pt. home care services to arrange for safe d/c
[2016-11-14] MEDS: chlordiazePOXIDE 5 MG CAPSULE PO SCH ×3 (05:37→18:13)
[2016-11-14] MEDS: HEPARIN NA (PORCINE) 5,000 UNITS/ML 1ML VIAL SQ SCH ×3 (06:16→21:40)
[2016-11-14] MEDS: levETIRAcetam 500 MG TABLET (FP) PO SCH ×2 (09:28→21:40)
[2016-11-14] MEDS: TAMSULOSIN HCL 0.4 MG CAP.ER.24H (FP) PO SCH (09:29)
[2016-11-14] MEDS: MULTIVITAMINS THER W-MINERALS COMBO TABLET (FP) PO SCH (09:29)
[2016-11-14] MEDS: FINASTERIDE 5 MG TABLET (FP) PO SCH (09:29)
[2016-11-14] MEDS: FOLIC ACID 1 MG TABLET (FP) PO SCH (09:29)
[2016-11-14] MEDS: ASPIRIN 81 MG CHEWABLE TABLETS PO SCH (09:29)
[2016-11-14] MEDS: METOPROLOL TARTRATE 25 MG TABLET (FP) PO SCH ×2 (09:29→21:40)
[2016-11-14] MEDS: CYANOCOBALAMIN (VITAMIN B-12) 100 MCG TABLET PO SCH (09:30)
[2016-11-14] MEDS: THIAMINE HCL 100 MG TABLET (FP) PO SCH (09:30)
--- NOTE | 2016-11-14 13:53 | MSN ---
Progress Note (SOAP) - Subjective Chief Complaint: Chest Pain History of Present Illness: Mr. Lima is a 81 y/o male w/ PMHx Sz, BPH, HIV, Alc abuse, bioprosthetic aortic and mitral valve, and CAD s/p CABG who is admitted for atypical chest pain from [facility]. Pt was sitting upright in bed this morning eating breakfast. It was difficult to obtain a good history due to patient's speech- slightly sluggish and rambling. His main concern today is the pain from his IV access on his left arm; he states the pain doesn't allow him to maneuver himself in bed which is already difficult due to a weak back. His only other complaints at this time are intermittent headaches, fever, and chills. Patient denies any CP/abd pain/sob/dysuria. Was not able to indicate the last time he had a bowel movement. - Current Medications Current Medications: Active Medications Aspirin (Asa -) 81 mg PO DAILY [facility] Last Admin: 11/14/16 09:29 Dose: 81 mg Chlordiazepoxide HCl (Librium -) 25 mg PO Q4H PRN PRN Reason: WITHDRAWAL(CONT SUBST) Stop: 11/14/16 16:55 Cyanocobalamin (Vitamin B12 -) 100 mcg PO DAILY [facility] Last Admin: 11/14/16 09:30 Dose: 100 mcg Finasteride (Proscar -) 5 mg PO DAILY [facility] Last Admin: 11/14/16 09:29 Dose: 5 mg Folic Acid (Folic Acid -) 1 mg PO DAILY [facility] Last Admin: 11/14/16 09:29 Dose: 1 mg Heparin Sodium (Porcine) (Heparin -) 5,000 unit SQ TID [facility] Last Admin: 11/14/16 13:25 Dose: 5,000 unit Levetiracetam (Keppra -) 500 mg PO BID [facility] Last Admin: 11/14/16 09:28 Dose: 500 mg Metoprolol Tartrate (Lopressor -) 25 mg PO BID [facility] Last Admin: 11/14/16 09:29 Dose: 25 mg Multivitamins/Minerals (Theragran-M) 1 each PO DAILY [facility] Last Admin: 11/14/16 09:29 Dose: 1 each Tamsulosin HCl (Flomax -) 0.4 mg PO DAILY@0830 [facility] Last Admin: 11/14/16 09:29 Dose: 0.4 mg Thiamine HCl (Vitamin B1 -) 100 mg PO DAILY ADÁN Last Admin: 11/14/16 09:30 Dose: 100 mg - Objective Vital Signs: Vital Signs Temperature 98 F 11/14/16 10:00 Pulse Rate 80 11/14/16 10:00 Respiratory Rate 20 11/14/16 10:00 Blood Pressure 150/95 11/14/16 10:00 O2 Sat by Pulse Oximetry (%) 98 11/14/16 09:00 Eyes: Yes: Conjunctiva Clear, EOM Intact HENT: Yes: Atraumatic, Normocephalic Cardiovascular: Yes: Regular Rate and Rhythm, Murmur (2/6 systolic murmur heard at the apex 5th ICS Mid-axillary line) Respiratory: Yes: Regular, CTA Bilaterally Gastrointestinal: Yes: Normal Bowel Sounds, Soft. No: Tenderness Peripheral Pulses WNL: Yes Peripheral Pulses: Left Radial: 2+, Right Radial: 2+, Left Doralis Pedis: 2+, Right Dorsalis Pedis: 2+ Edema: No ...Motor Strength: Yes: LUE (5/5), LLE (3/5 ), RUE (5/5), RLE (3/5) Labs Lab Results: CBC,CMP WBC 5.2 K/mm3 (4.0-10.0) 11/11/16 13:00 RBC 4.09 M/mm3 (4.00-5.60) 11/11/16 13:00 Hgb 13.0 GM/dL (11.7-16.9) 11/11/16 13:00 Hct 40.0 % (35.4-49) 11/11/16 13:00 MCV 97.9 fl (80-96) H 11/11/16 13:00 MCHC 32.6 g/dl (32.0-35.9) 11/11/16 13:00 RDW 13.3 % (11.9-15.9) 11/11/16 13:00 Plt Count 168 K/MM3 (134-434) 11/11/16 13:00 MPV 8.7 fl (7.5-11.1) 11/11/16 13:00 Neutrophils % 40.7 % (42.8-82.8) L 11/11/16 13:00 Lymphocytes % 46.9 % (8-40) H 11/11/16 13:00 Monocytes % 10.3 % (3.8-10.2) H 11/11/16 13:00 Eosinophils % 0.7 % (0-4.5) 11/11/16 13:00 Basophils % 1.4 % (0-2.0) 11/11/16 13:00 Sodium 138 mmol/L (136-145) 11/11/16 13:00 Potassium 3.9 mmol/L (3.5-5.1) 11/11/16 13:00 Chloride 103 mmol/L (98-107) 11/11/16 13:00 Carbon Dioxide 25 mmol/L (21-32) 11/11/16 13:00 Anion Gap 10 (8-16) 11/11/16 13:00 BUN 18 mg/dL (7-18) 11/11/16 13:00 Creatinine 1.1 mg/dL (0.7-1.3) 11/11/16 13:00 Creat Clearance w eGFR > 60 (>60) 11/11/16 13:00 Random Glucose 97 mg/dL (74-106) 11/11/16 13:00 Calcium 8.7 mg/dL (8.5-10.1) 11/11/16 13:00 Magnesium 2.0 mg/dL (1.8-2.4) 11/11/16 13:00 Total Bilirubin 0.7 mg/dL (0.2-1.0) 11/11/16 13:00 AST 40 U/L (15-37) H 11/11/16 13:00 ALT 25 U/L (12-78) 11/11/16 13:00 Alkaline Phosphatase 109 U/L (45-117) 11/11/16 13:00 Ammonia 37.23 umol/L (11-32) H 11/11/16 16:11 Creatine Kinase 48 IU/L (39-308) 11/12/16 05:50 Troponin I 0.02 ng/ml (0.00-0.05) 11/12/16 05:50 B-Natriuretic Peptide 1063.07 pg/ml (5-450) H 11/11/16 13:00 Total Protein 9.8 g/dl (6.4-8.2) H 11/11/16 13:00 Albumin 2.8 g/dl (3.4-5.0) L 11/11/16 13:00 Triglycerides 90 mg/dL (35-160) 11/13/16 05:40 Cholesterol 103 mg/dL (50-200) 11/13/16 05:40 Total LDL Cholesterol 55 mg/dL (5-100) 11/13/16 05:40 HDL Cholesterol 42 mg/dL (40-60) 11/13/16 05:40 Imaging - Results Chest X-ray: Other (No new images to review at this time) Assessment/Plan Mr. Lima is a 81 y/o male w/ PMHx Sz, BPH, HIV, Alc abuse, bioprosthetic aortic and mitral valve, and CAD s/p CABG who is admitted for atypical chest pain from [facility]. Atypical Chest pain; resolved, likely 2/2 acute alcohol withdrawal -ECHO: normal EF, mild RV dilation -ECG: sinus Tachy, no ischemic changes were noted -Troponin x3; normal -Lipid Panel, normal: TG 90, Chol 103, LDL 55, HDL 42 -Continue Aspirin 81mgs -Continue Metoprolol 25mg BID -Follow-up outpt Alcohol Withdrawal; improving, unsure if pt's speech and cognition back to baseline or 2/2 librium -Continue Librium protocol, consider decreasing dose today from 15mg Q6 to Q8 -Have PT come to evaluate patient -Continue Vit B1/B12 and folate -Dr. Orozco recommended pt to finish detox in the hospital; coordinate discharge plan with pt's home health services Sz -Keppra 500mg BID BPH -Flomax 0.4mg HIV -Noncompliant with medication -Follow-up with outpt clinic
--- NOTE | 2016-11-14 15:14 | PN ---
Physical Exam: SUBJECTIVE: Patient seen and examined at bedside. No overnight events. No new complaints. Patient states that the IV is bothering his arm. Denies CP, BRAVO, SOB , abd. pain, palpitation, N/V. OBJECTIVE: Vital Signs Period Temp Pulse Resp BP Sys/Good Pulse Ox Last 24 Hr 97.3 F-99.6 F 73-80 18-132 108-150/68-95 98-98 GENERAL: Lethargic in no acute distress. HEAD: NC/AT EYES: PERRL, conjunctiva clear. No ptosis. ENT: moist mucous membranes. NECK: supple, No JVD LUNGS: CTA bilat. No accessory muscle use. HEART: Regular rate and rhythm, S1, S2 without murmur, rub or gallop. ABDOMEN: Soft, nontender, nondistended, normoactive bowel sounds. EXTREMITIES: no edema. NEUROLOGICAL: Slurred speech, gait not observed. Active Medications Generic Name Dose Route Start Last Admin Trade Name Freq PRN Reason Stop Dose Admin Aspirin 81 mg 11/12/16 10:00 11/14/16 09:29 Asa - PO 81 mg DAILY ADÁN Administration Chlordiazepoxide HCl 25 mg 11/11/16 16:56 Librium - PO 11/14/16 16:55 Q4H PRN WITHDRAWAL(CONT SUBST) Cyanocobalamin 100 mcg 11/12/16 10:00 11/14/16 09:30 Vitamin B12 - PO 100 mcg DAILY ADÁN Administration Finasteride 5 mg 11/12/16 10:00 11/14/16 09:29 Proscar - PO 5 mg DAILY ADÁN Administration Folic Acid 1 mg 11/12/16 10:00 11/14/16 09:29 Folic Acid - PO 1 mg DAILY ADÁN Administration Heparin Sodium (Porcine) 5,000 unit 11/11/16 22:00 11/14/16 13:25 Heparin - SQ 5,000 unit TID ADÁN Administration Levetiracetam 500 mg 11/11/16 22:00 11/14/16 09:28 Keppra - PO 500 mg BID ADÁN Administration Metoprolol Tartrate 25 mg 11/11/16 22:00 11/14/16 09:29 Lopressor - PO 25 mg BID ADÁN Administration Multivitamins/Minerals 1 each 11/12/16 10:00 11/14/16 09:29 Theragran-M PO 1 each DAILY ADÁN Administration Tamsulosin HCl 0.4 mg 11/12/16 08:30 11/14/16 09:29 Flomax - PO 0.4 mg DAILY@0830 ADÁN Administration Thiamine HCl 100 mg 11/12/16 10:00 11/14/16 09:30 Vitamin B1 - PO 100 mg DAILY ADÁN Administration ASSESSMENT/PLAN: 81 y/oM with significant PMhx of CAD s/p CABG, HIV not compliant with his meds , BPH, bioprosthetic aortic and mitral valves , seizure disorder admitted to r/ o [facility] from [facility] detox program. I spoke with his [id number] today Mrs. Jayne Lima who states that she noticed him slurring speak and this is not his baseline. She would like to be kept up to date on his progress. She mentions she can be called day or night for any questions concerning Mr. Janie mansfield. Problem List - Problems (1) Chest pain Assessment/Plan: * Atypical CP * Cardiac enzymes (-) x3 * Echo show normal LV size/func/thickness. No regional WMA * continue ASA and BB * LDL 55 * f/u as outpatient. (2) Alcohol dependence with uncomplicated withdrawal Assessment/Plan: * Will reduce librium as patient seems lethargic. * No signs of withdrawl * Spoke with sister in law who says this is not his baseline. Fully functional at baseline. * Continue Thiamine and folate supplementation * Dr. Sage Cardona would like to complete detox @ [facility] * Once stable will contact home health aid for discharge. (3) Seizure disorder Assessment/Plan: * Continue Keppra 500mg PO daily (4) HIV (human immunodeficiency virus infection) Assessment/Plan: * No current treatment. * Will not start meds on this admission. * will need f/u as outpatient. Visit type - Emergency Visit Emergency Visit: Yes ED Registration Date: 11/11/16 Care time: The patient presented to the Emergency Department on the above date and was hospitalized for further evaluation of their emergent condition. - New Patient This patient is new to me today: Yes Date on this admission: 11/14/16 - Critical Care Critical Care patient: No
--- NOTE | 2016-11-14 17:18 | PN ---
Teaching Attending Note Name of Resident: Blu Gonzalez ATTENDING PHYSICIAN STATEMENT I saw and evaluated the patient. I reviewed the resident's note and discussed the case with the resident. I agree with the resident's findings and plan as documented. SUBJECTIVE: no fever or chills, has no CP . feels slightly better OBJECTIVE: NAD, awake, knows he is in the hospital, not his age , and not the year no nystagmus CV: RRR lungs: CTAB Ex: no edema, no tremor ASSESSMENT AND PLAN: 81 y/o man with H/O CAD s/p CABG, HIV not compliant with his meds, BPH, bioprosthetic aortic and mitral valves , seizure disorder who presented with CP during triage to [facility] detox program, 1-Atypical Chest pain: trop nl x 3 f/u as out pt cont ASA cont BB 2- ETOH withdrawal: cont with librium detox , still has 10 mg q 6hx 4 doses cont thiamine and vitamins 3- Seizure : cont Keppra 4- HIV, not on meds now 5- AMS , likely metabolic encephalopathy due to alcohol withdrawal and benzos . will assess mental status after finishing detox Med list to be brought by his girlfriend observe inhouse
[2016-11-15] MEDS: chlordiazePOXIDE 5 MG CAPSULE PO SCH ×3 (00:20→12:02)
[2016-11-15] MEDS: HEPARIN NA (PORCINE) 5,000 UNITS/ML 1ML VIAL SQ SCH ×3 (05:32→22:25)
[2016-11-15] MEDS: TAMSULOSIN HCL 0.4 MG CAP.ER.24H (FP) PO SCH (08:57)
[2016-11-15] MEDS: ASPIRIN 81 MG CHEWABLE TABLETS PO SCH (09:27)
[2016-11-15] MEDS: levETIRAcetam 500 MG TABLET (FP) PO SCH ×2 (09:28→22:24)
[2016-11-15] MEDS: CYANOCOBALAMIN (VITAMIN B-12) 100 MCG TABLET PO SCH (09:28)
[2016-11-15] MEDS: FOLIC ACID 1 MG TABLET (FP) PO SCH (09:28)
[2016-11-15] MEDS: MULTIVITAMINS THER W-MINERALS COMBO TABLET (FP) PO SCH (09:28)
[2016-11-15] MEDS: FINASTERIDE 5 MG TABLET (FP) PO SCH (09:28)
[2016-11-15] MEDS: THIAMINE HCL 100 MG TABLET (FP) PO SCH (09:28)
[2016-11-15] MEDS: METOPROLOL TARTRATE 25 MG TABLET (FP) PO SCH ×2 (09:30→22:24)
--- NOTE | 2016-11-15 14:18 | PN ---
Physical Exam: SUBJECTIVE: Patient seen and examined at bedside. No overnight events. No new complaints. More alert today. Denies CP, BRAVO, SOB, abd. pain, palpitation, N/V. OBJECTIVE: Vital Signs Period Temp Pulse Resp BP Sys/Good Pulse Ox Last 24 Hr 98 F-99.7 F 66-86 18-132 122-146/67-87 97-98 GENERAL: Lethargic in no acute distress. HEAD: NC/AT EYES: PERRL, conjunctiva clear. No ptosis. ENT: moist mucous membranes. NECK: supple, No JVD LUNGS: CTA bilat. No accessory muscle use. HEART: Regular rate and rhythm, S1, S2 without murmur, rub or gallop. ABDOMEN: Soft, nontender, nondistended, normoactive bowel sounds. EXTREMITIES: no edema. NEUROLOGICAL: Slurred speech, gait not observed Active Medications Generic Name Dose Route Start Last Admin Trade Name Freq PRN Reason Stop Dose Admin Aspirin 81 mg 11/12/16 10:00 11/15/16 09:27 Asa - PO 81 mg DAILY ADÁN Administration Cyanocobalamin 100 mcg 11/12/16 10:00 11/15/16 09:28 Vitamin B12 - PO 100 mcg DAILY ADÁN Administration Finasteride 5 mg 11/12/16 10:00 11/15/16 09:28 Proscar - PO 5 mg DAILY ADÁN Administration Folic Acid 1 mg 11/12/16 10:00 11/15/16 09:28 Folic Acid - PO 1 mg DAILY ADÁN Administration Heparin Sodium (Porcine) 5,000 unit 11/11/16 22:00 11/15/16 13:37 Heparin - SQ 5,000 unit TID ADÁN Administration Levetiracetam 500 mg 11/11/16 22:00 11/15/16 09:28 Keppra - PO 500 mg BID ADÁN Administration Metoprolol Tartrate 25 mg 11/11/16 22:00 11/15/16 09:30 Lopressor - PO 25 mg BID ADÁN Administration Multivitamins/Minerals 1 each 11/12/16 10:00 11/15/16 09:28 Theragran-M PO 1 each DAILY ADÁN Administration Tamsulosin HCl 0.4 mg 11/12/16 08:30 11/15/16 08:57 Flomax - PO 0.4 mg DAILY@0830 ADÁN Administration Thiamine HCl 100 mg 11/12/16 10:00 11/15/16 09:28 Vitamin B1 - PO 100 mg DAILY ADÁN Administration ASSESSMENT/PLAN: 81 y/oM with significant PMhx of CAD s/p CABG, HIV not compliant with his meds , BPH, bioprosthetic aortic and mitral valves , seizure disorder admitted to r/ o ACS from [facility] detox program Problem List - Problems (1) Chest pain Assessment/Plan: * Atypical CP * Cardiac enzymes (-) x3 * Echo show normal LV size/func/thickness. No regional WMA * continue ASA and BB * LDL 55 * f/u as outpatient. (2) Alcohol dependence with uncomplicated withdrawal Assessment/Plan: * Will reduce librium as patient seems lethargic. * No signs of withdrawl * Spoke with sister in law who says this is not his baseline. Fully functional at baseline. * Continue Thiamine and folate supplementation * Dr. Sage Cardona would like to complete detox @ [facility] * Once stable will contact home health aid for discharge. (3) Seizure disorder Assessment/Plan: * Continue Keppra 500mg PO daily (4) HIV (human immunodeficiency virus infection) Assessment/Plan: * No current treatment. * Will not start meds on this admission. * will need f/u as outpatient. Visit type - Emergency Visit Emergency Visit: Yes ED Registration Date: 11/11/16 Care time: The patient presented to the Emergency Department on the above date and was hospitalized for further evaluation of their emergent condition. - New Patient This patient is new to me today: No - Critical Care Critical Care patient: No - Discharge Referral Referred to [facility] Med P.C.: No
--- NOTE | 2016-11-15 15:34 | PN ---
Teaching Attending Note Name of Resident: Blu Gonzalez ATTENDING PHYSICIAN STATEMENT I saw and evaluated the patient. I reviewed the resident's note and discussed the case with the resident. I agree with the resident's findings and plan as documented. SUBJECTIVE: no fever or chills , feels a little better today. no events over night OBJECTIVE: NAD, awake, knows he is in the hospital, not oriented to his age , and not the year no nystagmus CV: RRR lungs: CTAB Ex: no edema, no tremor limited neuro exam due to not being co-operative. orientation as above. symmetric face , no facial droop, EOMI, tongue at mid line. strength 5/5 in upper extremities proximally and distally, limited exam to LE due to positioning and conditin. reflexes 2+ biceps reflexes ASSESSMENT AND PLAN: 81 y/o man with H/O CAD s/p CABG, HIV not compliant with his meds, BPH, bioprosthetic aortic and mitral valves , seizure disorder who presented with CP during triage to [facility] detox program, 1-Atypical Chest pain: f/u as out pt cont ASA cont BB 2- ETOH withdrawal: He finishes librium taper today . cont thiamine and vitamins 3- Seizure : cont Keppra 4- HIV, not on meds now 5- AMS , likely metabolic encephalopathy due to alcohol withdrawal and benzos . will assess mental later today and tomorrow. if no improvement will obtain CT scan of head Med list to be confirmed cont to monitor in house cont PT
[2016-11-16] MEDS: HEPARIN NA (PORCINE) 5,000 UNITS/ML 1ML VIAL SQ SCH ×3 (05:39→22:10)
[2016-11-16] MEDS: TAMSULOSIN HCL 0.4 MG CAP.ER.24H (FP) PO SCH (08:06)
[2016-11-16 08:16] LABS: CALCIUM 7.9 mg/dL (8.5-10.1); COCKROFT - GAULT 44.83; CREATININE 1.2 mg/dL (0.7-1.3); MAGNESIUM 2.1 mg/dL (1.8-2.4)
[2016-11-16] MEDS: ASPIRIN 81 MG CHEWABLE TABLETS PO SCH (09:04)
[2016-11-16] MEDS: THIAMINE HCL 100 MG TABLET (FP) PO SCH (09:05)
[2016-11-16] MEDS: levETIRAcetam 500 MG TABLET (FP) PO SCH ×2 (09:05→22:10)
[2016-11-16] MEDS: MULTIVITAMINS THER W-MINERALS COMBO TABLET (FP) PO SCH (09:05)
[2016-11-16] MEDS: FINASTERIDE 5 MG TABLET (FP) PO SCH (09:05)
[2016-11-16] MEDS: METOPROLOL TARTRATE 25 MG TABLET (FP) PO SCH ×2 (09:05→22:10)
[2016-11-16] MEDS: CYANOCOBALAMIN (VITAMIN B-12) 100 MCG TABLET PO SCH (09:05)
[2016-11-16] MEDS: FOLIC ACID 1 MG TABLET (FP) PO SCH (09:05)
[2016-11-16] MEDS ORDERED: INDAPAMIDE 2.5 MG TABLET PO SCH (10:00)
[2016-11-16] MEDS: SODIUM CHLORIDE 1,000 ML IV SCH (14:28)
--- NOTE | 2016-11-16 16:28 | PN ---
Progress Note (short form) - Note Progress Note: Subjective: no pain ,not comfortable in bed Objective: Vital Signs: Last Vital Signs Temp Pulse Resp BP Pulse Ox 98.7 F 72 20 121/74 98 11/16/16 14:03 11/16/16 14:03 11/16/16 14:03 11/16/16 14:03 11/16/16 09:00 Laboratory Results - last 24 hr 11/16/16 05:35 Sodium 138 Potassium 4.3 Chloride 106 Carbon Dioxide 24 Anion Gap 8 BUN 20 H Creatinine 1.2 Random Glucose 86 Calcium 7.9 L Phosphorus 4.0 Magnesium 2.1 Physical Exam: NAD, awake, knows he is in the hospital, not oriented to his age , and not the year CV: RRR lungs: CTAB Ex: no edema, no tremor Neuro exam : dorientation as above. symmetric face , no facial droop, EOMI, round equal pupils reactive to light , no nystagmus , tongue at mid line. strength 5/5 in upper extremities proximally and distally, limited exam to LE due to positioning and condition, but have 3-4 /5 hip flexionand knee extention , 5/5 dorsiflexion and plantar flexion b/l . reflexes 1+ biceps reflexes, 1+ knee jerk b/l ASSESSMENT AND PLAN: 81 y/o man with H/O CAD s/p CABG, HIV not compliant with his meds, BPH, bioprosthetic aortic and mitral valves , seizure disorder who presented with CP during triage to [facility] detox program, 1-Atypical Chest pain: f/u as out pt cont ASA cont BB 2- ETOH withdrawal: sinished detox with librium yesterday cont thiamine and vitamins . 3- signs of volume depletion with rising cr and BUN. due to poor oral intake. will start IVF 4- AMS , likely metabolic encephalopathy due to alcohol withdrawal and benzos . He isslightly more alert and communicative today, but clearly not at his base line . Neuro exam is not focal. - expect his mentation to slowly improve - check CT scan of head 5- Seizure : cont Keppra dispo : possible dc to rehab tomorrow Visit type - Emergency Visit Emergency Visit: Yes ED Registration Date: 11/11/16 Care time: The patient presented to the Emergency Department on the above date and was hospitalized for further evaluation of their emergent condition. - New Patient This patient is new to me today: No - Critical Care Critical Care patient: No
[2016-11-17] MEDS: HEPARIN NA (PORCINE) 5,000 UNITS/ML 1ML VIAL SQ SCH ×3 (05:51→21:40)
[2016-11-17] MEDS: TAMSULOSIN HCL 0.4 MG CAP.ER.24H (FP) PO SCH (08:49)
[2016-11-17 08:50] LABS: CALCIUM 8.3 mg/dL (8.5-10.1); COCKROFT - GAULT 48.91; CREATININE 1.1 mg/dL (0.7-1.3)
[2016-11-17] MEDS: THIAMINE HCL 100 MG TABLET (FP) PO SCH (10:32)
[2016-11-17] MEDS: METOPROLOL TARTRATE 25 MG TABLET (FP) PO SCH ×2 (10:33→21:36)
[2016-11-17] MEDS: FINASTERIDE 5 MG TABLET (FP) PO SCH (10:33)
[2016-11-17] MEDS: ASPIRIN 81 MG CHEWABLE TABLETS PO SCH (10:33)
[2016-11-17] MEDS: MULTIVITAMINS THER W-MINERALS COMBO TABLET (FP) PO SCH (10:33)
[2016-11-17] MEDS: FOLIC ACID 1 MG TABLET (FP) PO SCH (10:33)
[2016-11-17] MEDS: levETIRAcetam 500 MG TABLET (FP) PO SCH ×2 (10:33→21:36)
[2016-11-17] MEDS: CYANOCOBALAMIN (VITAMIN B-12) 100 MCG TABLET PO SCH (10:33)
--- NOTE | 2016-11-17 15:24 | PN ---
Physical Exam: SUBJECTIVE: Patient seen and examined at bedside. No overnight events. No new complaints. More awake and alert today. Denies CP,BRAVO, SOB, palpitations, N/V. OBJECTIVE: Vital Signs Period Temp Pulse Resp BP Sys/Good Pulse Ox Last 24 Hr 97.5 F-99 F 66-90 17-20 124-155/75-86 94-95 GENERAL:AAO x 2 (person and place) no acute distress. HEAD: NC/AT EYES: PERRL, conjunctiva clear. No ptosis. ENT: moist mucous membranes. NECK: supple, No JVD LUNGS: CTA bilat. No accessory muscle use. HEART: Regular rate and rhythm, S1, S2 without murmur, rub or gallop. ABDOMEN: Soft, nontender, nondistended, normoactive bowel sounds. EXTREMITIES: no edema. NEUROLOGICAL: more alert, gait not observed 5/5 strength in bilat. upper ext. 5 /5 RLE and 4/5 LLE , no focal neurological def. Laboratory Results - last 24 hr 11/17/16 05:35 Sodium 139 Potassium 4.1 Chloride 106 Carbon Dioxide 22 Anion Gap 11 BUN 15 D Creatinine 1.1 Random Glucose 79 Calcium 8.3 L Active Medications Generic Name Dose Route Start Last Admin Trade Name Freq PRN Reason Stop Dose Admin Aspirin 81 mg 11/12/16 10:00 11/17/16 10:33 Asa - PO 81 mg DAILY ADÁN Administration Cyanocobalamin 100 mcg 11/12/16 10:00 11/17/16 10:33 Vitamin B12 - PO 100 mcg DAILY ADÁN Administration Finasteride 5 mg 11/12/16 10:00 11/17/16 10:33 Proscar - PO 5 mg DAILY ADÁN Administration Folic Acid 1 mg 11/12/16 10:00 11/17/16 10:33 Folic Acid - PO 1 mg DAILY ADÁN Administration Heparin Sodium (Porcine) 5,000 unit 11/11/16 22:00 11/17/16 05:51 Heparin - SQ 5,000 unit TID ADÁN Administration Sodium Chloride 1,000 mls @ 75 mls/hr 11/16/16 13:30 11/16/16 14:28 Normal Saline - IV 75 mls/hr ASDIR ADÁN Administration Levetiracetam 500 mg 11/11/16 22:00 11/17/16 10:33 Keppra - PO 500 mg BID ADÁN Administration Metoprolol Tartrate 25 mg 11/11/16 22:00 11/17/16 10:33 Lopressor - PO 25 mg BID ADÁN Administration Multivitamins/Minerals 1 each 11/12/16 10:00 11/17/16 10:33 Theragran-M PO 1 each DAILY ADÁN Administration Tamsulosin HCl 0.4 mg 11/12/16 08:30 11/17/16 08:49 Flomax - PO 0.4 mg DAILY@0830 ADÁN Administration Thiamine HCl 100 mg 11/12/16 10:00 11/17/16 10:32 Vitamin B1 - PO 100 mg DAILY ADÁN Administration ASSESSMENT/PLAN: 81 y/oM with significant PMhx of CAD s/p CABG, HIV not compliant with his meds , BPH, bioprosthetic aortic and mitral valves , seizure disorder admitted to r/ o ACS from [facility] detox program. Problem List - Problems (1) Chest pain Assessment/Plan: * Atypical CP * Cardiac enzymes (-) x3 * Echo show normal LV size/func/thickness. No regional WMA * continue ASA and BB * LDL 55 * f/u as outpatient. (2) Alcohol dependence with uncomplicated withdrawal Assessment/Plan: * Detox complete. * No signs of withdrawl * Continue Thiamine and folate supplementation * Awaiting approval to rehab facility. (3) Seizure disorder Assessment/Plan: * Continue Keppra 500mg PO daily (4) HIV (human immunodeficiency virus infection) Assessment/Plan: * No current treatment. * Will not start meds on this admission. * will need f/u as outpatient. Visit type - Emergency Visit Emergency Visit: Yes ED Registration Date: 11/16/16 Care time: The patient presented to the Emergency Department on the above date and was hospitalized for further evaluation of their emergent condition. - New Patient This patient is new to me today: No - Critical Care Critical Care patient: No - Discharge Referral Referred to [facility] Med P.C.: No
--- NOTE | 2016-11-17 19:23 | PN ---
Teaching Attending Note Name of Resident: Blu Gonzalez ATTENDING PHYSICIAN STATEMENT I saw and evaluated the patient. I reviewed the resident's note and discussed the case with the resident. I agree with the resident's findings and plan as documented. SUBJECTIVE: no fever or chills , feels a little better OBJECTIVE: NAD, awake, knows he is in [facility] , knows the president , not oriented to his age , and not the year CV: RRR lungs: CTAB Ex: no edema, no tremor Neuro exam : orientation as above. symmetric face , no facial droop, EOMI, round equal pupils reactive to light , no nystagmus , tongue at mid line. strength 5/5 in upper extremities distally, shoulder abduction 4/5 .limited exam to LE due to positioning and condition, but have 3-4 /5 hip flexion and knee extention , 5/5 dorsiflexion and plantar flexion b/l . reflexes 1+ biceps reflexes, 1+ knee jerk b/l ASSESSMENT AND PLAN: 81 y/o man with H/O CAD s/p CABG, HIV not compliant with his meds, BPH, bioprosthetic aortic and mitral valves , seizure disorder who presented with CP during triage to [facility] detox program, 1-Atypical Chest pain: f/u as out pt cont ASA cont BB 2- ETOH withdrawal: off librium cont thiamine and vitamins . 3- volume depletion : cont IVF for now 4- AMS , likely metabolic encephalopathy due to alcohol withdrawal and benzos . neuro exam is non focal Ct scan with no acute events mentation is better today . it will need time as I expect slight acute delirium 5- Seizure : cont Keppra dispo : pending bed at rehab
[2016-11-17] MEDS: SODIUM CHLORIDE 1,000 ML IV SCH (21:39)
[2016-11-18] MEDS: HEPARIN NA (PORCINE) 5,000 UNITS/ML 1ML VIAL SQ SCH ×2 (06:20→14:07)
[2016-11-18] MEDS: TAMSULOSIN HCL 0.4 MG CAP.ER.24H (FP) PO SCH (08:35)
[2016-11-18] MEDS: CYANOCOBALAMIN (VITAMIN B-12) 100 MCG TABLET PO SCH (09:26)
[2016-11-18] MEDS: FOLIC ACID 1 MG TABLET (FP) PO SCH (09:27)
[2016-11-18] MEDS: METOPROLOL TARTRATE 25 MG TABLET (FP) PO SCH (09:27)
[2016-11-18] MEDS: MULTIVITAMINS THER W-MINERALS COMBO TABLET (FP) PO SCH (09:27)
[2016-11-18] MEDS: THIAMINE HCL 100 MG TABLET (FP) PO SCH (09:27)
[2016-11-18] MEDS: ASPIRIN 81 MG CHEWABLE TABLETS PO SCH (09:27)
[2016-11-18] MEDS: FINASTERIDE 5 MG TABLET (FP) PO SCH (09:27)
[2016-11-18] MEDS: levETIRAcetam 500 MG TABLET (FP) PO SCH (09:27)
--- NOTE | 2016-11-18 13:50 | DS ---
Physical Exam: SUBJECTIVE: Patient seen and examined at bedside. No overnight events. No new complaints. Denies CP,BARVO, SOB, abd.pain, palpitations, N/V. OBJECTIVE: Vital Signs Period Temp Pulse Resp BP Sys/Good Pulse Ox Last 24 Hr 97.5 F-98.7 F 70-98 18-20 127-194/77-97 96-96 PHYSICAL EXAM GENERAL:AAO x 2 (person and place) no acute distress. HEAD: NC/AT EYES: PERRL, conjunctiva clear. No ptosis. ENT: moist mucous membranes. NECK: supple, No JVD LUNGS: CTA bilat. No accessory muscle use. HEART: Regular rate and rhythm, S1, S2 without murmur, rub or gallop. ABDOMEN: Soft, nontender, nondistended, normoactive bowel sounds. EXTREMITIES: no edema. NEUROLOGICAL: more alert, gait not observed 5/5 strength in bilat. upper ext. 5 /5 RLE and 5/5 LLE , no focal neurological def. . LABS Laboratory Last Values WBC 5.2 K/mm3 (4.0-10.0) 11/11/16 13:00 RBC 4.09 M/mm3 (4.00-5.60) 11/11/16 13:00 Hgb 13.0 GM/dL (11.7-16.9) 11/11/16 13:00 Hct 40.0 % (35.4-49) 11/11/16 13:00 MCV 97.9 fl (80-96) H 11/11/16 13:00 MCHC 32.6 g/dl (32.0-35.9) 11/11/16 13:00 RDW 13.3 % (11.9-15.9) 11/11/16 13:00 Plt Count 168 K/MM3 (134-434) 11/11/16 13:00 MPV 8.7 fl (7.5-11.1) 11/11/16 13:00 Neutrophils % 40.7 % (42.8-82.8) L 11/11/16 13:00 Lymphocytes % 46.9 % (8-40) H 11/11/16 13:00 Monocytes % 10.3 % (3.8-10.2) H 11/11/16 13:00 Eosinophils % 0.7 % (0-4.5) 11/11/16 13:00 Basophils % 1.4 % (0-2.0) 11/11/16 13:00 Sodium 139 mmol/L (136-145) 11/17/16 05:35 Potassium 4.1 mmol/L (3.5-5.1) 11/17/16 05:35 Chloride 106 mmol/L (98-107) 11/17/16 05:35 Carbon Dioxide 22 mmol/L (21-32) 11/17/16 05:35 Anion Gap 11 (8-16) 11/17/16 05:35 BUN 15 mg/dL (7-18) D 11/17/16 05:35 Creatinine 1.1 mg/dL (0.7-1.3) 11/17/16 05:35 Creat Clearance w eGFR > 60 (>60) 11/11/16 13:00 Random Glucose 79 mg/dL (74-106) 11/17/16 05:35 Calcium 8.3 mg/dL (8.5-10.1) L 11/17/16 05:35 Phosphorus 4.0 mg/dL (2.5-4.9) 11/16/16 05:35 Magnesium 2.1 mg/dL (1.8-2.4) 11/16/16 05:35 Total Bilirubin 0.7 mg/dL (0.2-1.0) 11/11/16 13:00 AST 40 U/L (15-37) H 11/11/16 13:00 ALT 25 U/L (12-78) 11/11/16 13:00 Alkaline Phosphatase 109 U/L (45-117) 11/11/16 13:00 Ammonia 37.23 umol/L (11-32) H 11/11/16 16:11 Creatine Kinase 48 IU/L (39-308) 11/12/16 05:50 Troponin I 0.02 ng/ml (0.00-0.05) 11/12/16 05:50 B-Natriuretic Peptide 1063.07 pg/ml (5-450) H 11/11/16 13:00 Total Protein 9.8 g/dl (6.4-8.2) H 11/11/16 13:00 Albumin 2.8 g/dl (3.4-5.0) L 11/11/16 13:00 Triglycerides 90 mg/dL (35-160) 11/13/16 05:40 Cholesterol 103 mg/dL (50-200) 11/13/16 05:40 Total LDL Cholesterol 55 mg/dL (5-100) 11/13/16 05:40 HDL Cholesterol 42 mg/dL (40-60) 11/13/16 05:40 Urine Color Ltyellow 11/11/16 13:00 Urine Appearance Clear 11/11/16 13:00 Urine pH 6.0 (5.0-8.0) 11/11/16 13:00 Ur Specific [place] 1.014 (1.001-1.035) 11/11/16 13:00 Urine Protein Negative (NEGATIVE) 11/11/16 13:00 Urine Glucose (UA) Negative (NEGATIVE) 11/11/16 13:00 Urine Ketones Negative (NEGATIVE) 11/11/16 13:00 Urine Blood 1+ (NEGATIVE) H 11/11/16 13:00 Urine Nitrite Negative (NEGATIVE) 11/11/16 13:00 Urine Bilirubin Negative (NEGATIVE) 11/11/16 13:00 Urine Urobilinogen Negative E.U./dl (0.2-1.0) 11/11/16 13:00 Ur Leukocyte Esterase Negative (NEGATIVE) 11/11/16 13:00 Urine RBC 11 /hpf (0-3) 11/11/16 13:00 Urine WBC None /hpf (3-5) 11/11/16 13:00 Urine Bacteria Rare /hpf (NONE SEEN) 11/11/16 13:00 Granular Casts 1 /lpf 11/11/16 13:00 Opiates Screen Negative ng/ml (TUIQPN=148) 11/11/16 13:00 Methadone Screen Negative ng/ml (FXOYMC=889) 11/11/16 13:00 Barbiturate Screen Negative ng/ml (LTYYGZ=966) 11/11/16 13:00 Phencyclidine Screen Negative ng/ml (CUTOFF=25) 11/11/16 13:00 Ur Amphetamines Screen Negative ng/ml (KFTKWT=801) 11/11/16 13:00 MDMA (Ecstasy) Screen Negative ng/ml (GFVAQC=376) 11/11/16 13:00 Benzodiazepines Screen Negative ng/ml (XLRRCL=178) 11/11/16 13:00 Cocaine Screen Negative ng/ml (RWGAON=881) 11/11/16 13:00 U Marijuana (THC) Screen Negative ng/ml (CUTOFF=50) 11/11/16 13:00 Alcohol, Quantitative < 5.0 mg/dl (0-5) 11/11/16 13:00 HOSPITAL COURSE: 81 y/oM with significant PMhx of CAD s/p CABG, HIV not compliant with his meds , BPH, bioprosthetic aortic and mitral valves , seizure disorder admitted to r/ o ACS from [facility] detox program. Atypical chest pain ruled out ACS with no EKG changes, no events of telemetry, cardiac enzymes (-) x3 , and Echo showing normal LV size and function with no WMA. Started on BB and ASA to be continued upon discharge. Further workup as outpatient. As far as his alcohol dependence his detox was managed here at hospital for withdrawl symptoms with use of Librium CIWA protocol. Patient had increased lethargy during detox and there was some concern for possible CVA and CT head was done but showed no acute pathology. Subsequent neuro exams show no focal deficit. His seizure disorder was managed with continued use of home meds of 500mg Keppra BID PO . No siezures during admission.HIV meds were not restarted as patient had not taken HAART for several months prior to admission .He will need follow up as outpatient and re-assessed weather or not to restart treatment -[facility] . Patient is stable for discharge to SNF. Date of Admission:11/16/16 Date of Discharge: 11/18/16 Minutes to complete discharge: 45 Discharge Summary Reason For Visit: CHEST PAIN Current Active Problems Alcohol dependence with uncomplicated withdrawal (Acute) Chest pain (Acute) Seizure disorder (Chronic) Condition: Improved - Instructions Diet, Activity, Other Instructions: ASC ruled out will need stress test and further workup as outpatient. HIV meds not restarted on this admission will need to see ID specialist as outpatient. [facility] [phone] Continue with Keppra which is siezure medication. Please follow up with neurologist. You have completed your Detox , please continue with Thiamine and folate supplementation. Low sodium diet. Increase activity as tolerated. Referrals: Brendan Vasquez [Primary Care Provider] - Disposition: LONGTERM FACILITY - Home Medications Comprehensive Discharge Medication List: Ambulatory Orders Elviteg/Kathryn/Emtric/Tenofo Ala [Genvoya Tablet] 1 each PO DAILY 11/11/16 Finasteride [Proscar] 5 mg PO DAILY 11/11/16 Fluticasone Prop 0.05% Nasal [Flonase -] 1 - 2 spray NS BID 11/11/16 Indapamide 1.25 mg PO DAILY 11/11/16 Levetiracetam [Keppra -] 500 mg PO BID 11/11/16 Metoprolol Tartrate [Lopressor -] 25 mg PO BID 11/11/16 Tamsulosin HCl [Flomax] 0.4 mg PO DAILY 11/11/16 Folic Acid - 1 mg PO DAILY tablet 11/18/16 Thiamine HCl [Vitamin B1 -] 100 mg PO DAILY tablet 11/18/16 Problem List - Problems (1) Chest pain (2) Alcohol dependence with uncomplicated withdrawal (3) Seizure disorder (4) HIV (human immunodeficiency virus infection) This patient is new to me today: No Emergency Visit: No Critical Care patient: No - Discharge Referral Referred to [facility] No
--- NOTE | 2016-11-18 13:55 | PN ---
Teaching Attending Note Name of Resident: Blu Gonzalez ATTENDING PHYSICIAN STATEMENT I saw and evaluated the patient. I reviewed the resident's note and discussed the case with the resident. I agree with the resident's findings and plan as documented. SUBJECTIVE: no fever or chills, no PC . feels a little better OBJECTIVE: NAD, awake, knows he is in the hospital, not oriented to his age , and not the year CV: RRR lungs: CTAB Ex: no edema, no tremor ASSESSMENT AND PLAN: 81 y/o man with H/O CAD s/p CABG, HIV not compliant with his meds, BPH, bioprosthetic aortic and mitral valves , seizure disorder who presented with CP during triage to [facility] detox program, 1-Atypical Chest pain: f/u as out pt cont ASA cont BB 2- ETOH withdrawal: finished detox with librium cont thiamine and vitamins . 3- AMS , likely metabolic encephalopathy due to alcohol withdrawal and benzos . cont to improve slowly. -neg head CT 5- Seizure : cont Keppra 6- HIV, not taking Genvoya as out pt ( was supposed to ) , so will not resume at dc , will provide with [place] [facility] number at dc 7- HTN: SBP in 170s this am before meds. at dc will resume indapamide and metorpolol dc to rehab
[2016-11-18 14:26] VITALS: BP 160/96; PULSE 75; TEMP 97.8
== END 2016-11-18 18:31 | DRG 313 ==
LOC: JER 12:50 → JERBED 16:52 → INTOOBSV 17:13 → JERBED 17:13 → UNDOADMOB 17:13 → JERBED 18:55 → J4W 18:55 → OBSVTOIN 11-16 16:21
PROVIDERS: ADMIT Internal Medicine; ATTEND Internal Medicine
PROC: HZ2ZZZZ Detoxification Services for Substance Abuse Treatment (ICD-10-PCS; principal; 2016-11-16)
DX: R07.89 Other chest pain (principal); F10.230 Alcohol dependence with withdrawal, uncomplicated; Z21 Asymptomatic human immunodeficiency virus [HIV] infection status; I10 Essential (primary) hypertension; N40.0 Benign prostatic hyperplasia without lower urinary tract symptoms; Z91.14 Patient's other noncompliance with medication regimen; G40.909 Epilepsy, unspecified, not intractable, without status epilepticus; E86.9 Volume depletion, unspecified; I25.10 Atherosclerotic heart disease of native coronary artery without angina pectoris; Z95.1 Presence of aortocoronary bypass graft
CPT/HCPCS: 36415; 70450-TC; 71010-TC; 80048; 80053; 80061; 80307; 81003; 81015; 82140; 82550; 83721; 83735; 83880; 84100; 84484; 85025; 93005; 93010; 93306-TC; 97116-GP; 97161-GP; 99283-25; G0378; J1644